=== PATIENT | female | born 1950 | race Caucasian/White ===

== ENCOUNTER 2017-12-27 06:20 | Inpatient (IN) | payer MEDICARE, BC ==
--- NOTE | 2017-12-27 07:04 | HP ---
HISTORY OF PRESENT ILLNESS: This is a 67-year-old patient on chronic hemodialysis, followed by Dr. Ryland joy. She is status post coronary bypass grafting x2 done in [place], [place] and underwent stenting of a diagonal branch last year by Dr. Jarrett. Subsequent to that, she was found to have a severe right in ternal carotid artery stenosis; however, due to dual antiplatelet therapy her carotid endarterectomy has been postponed until this time. She is known to have moderate aortic valve stenosis with a valve area of 1.24 by echo with normal left ventricular systolic function. Otherwise, she has type 2 diab etes mellitus managed by an insulin pump. She has end-stage renal disease. She has neuropathy and s lady stenosis, retinopathy. PAST SURGICAL HISTORY: Includes multiple laser treatments for her eyes, as well as multiple eye surg eries, bilateral cataract surgeries, cholecystectomy, prior cardiac stents in 2010, prior coronary by pass graft in 2011, diagonal stent in 12/2016. FAMILY HISTORY: Positive for hypertension and heart disease. SOCIAL HISTORY: She is a nonsmoker, nondrinker. 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 ALLERGIES: Include SCOPOLAMINE, MEPERIDINE, and DEMEROL, both of which the latter to cause nausea an d vomiting. MEDICATIONS: Gabapentin, Sensipar, losartan 100, aspirin 1 a day, Livalo 4 mg a day, metoprolol 100 b.i.d., NovoLog insulin. PHYSICAL EXAMINATION: VITAL SIGNS: Height 5 feet 4 inches, weight 215. NECK: Bilateral bruits. CARDIAC: Regular rate and rhythm with a systolic murmur. LUNGS: Clear to auscultation. ABDOMEN: Obese, nontender. EXTREMITIES: Fistula in the right upper arm and a palpable pedal pulse in each foot. NEUROLOGIC: Unremarkable. PLAN: Right carotid endarterectomy confirmed both on MR study and CT scan. Informed consent has bee n obtained.
[2017-12-27] MEDS ORDERED: CEFAZOLIN/Water 2 GM/20 ML SYRINGE ONE (08:14)
[2017-12-27 09:08] LABS: Hemoglobin 10.9 g/dL (12.0-16.0); Mean Corpuscular HGB CONC 31.4 g/dL (32.0-36.0); Mean Corpuscular Hemoglobin 33.2 pg (27.0-31.0); Platelet Count 277 thou/uL (130-400); RBC Distribution Width 15.2 % (11.5-14.5); Red Blood Cell (RBC) Count 3.28 mill/uL (4.20-5.40); White Blood Cell (WBC) Count 7.8 thou/uL (4.8-10.8)
[2017-12-27 09:33] LABS: Anion Gap 14 mmol/L (10-20); BUN (Urea Nitrogen) 40 mg/dL (9.8-20.1); Calc. Creatinine Clearance 14 mL/min (70-130); Calcium 9.5 mg/dL (7.8-10.44); Carbon Dioxide 35 mmol/L (23-31); Chloride 96 mmol/L (98-107); Estimated GFR-MDRD 7; Glucose 84 mg/dL (80-115); Potassium 5.3 mmol/L (3.5-5.1); Sodium 140 mmol/L (136-145)
[2017-12-27] MEDS ORDERED: Fentanyl 100 MCG/2 ML VIAL ONE ×2 (09:54→12:32)
[2017-12-27] MEDS ORDERED: Labetalol HCl 100 MG/20 ML VIAL ONE (09:54)
[2017-12-27] MEDS ORDERED: Phenylephrine HCL 10 MG/ML VIAL ONE (09:54)
[2017-12-27] MEDS ORDERED: SUGAMMADEX SODIUM 500 MG/5 ML VIAL ONE (11:54)
[2017-12-27] MEDS ORDERED: Naloxone HCl 0.4 mg/ml Vial ONE (11:57)
[2017-12-27] MEDS ORDERED: Promethazine HCl 25 MG/ML VIAL SLOW IVP PRN (12:06)
[2017-12-27] MEDS ORDERED: Ondansetron HCl/PF 4 MG/2 ML Vial IVP PRN ×2 (12:06→13:18)
[2017-12-27] MEDS ORDERED: Promethazine HCl 25 MG/ML VIAL IM PRN ×2 (12:06→13:18)
[2017-12-27] MEDS ORDERED: HYDROmorphone 2 MG/ML VIAL SLOW IVP PRN (12:06)
[2017-12-27] MEDS ORDERED: hydrALAZINE 20 MG/ML VIAL ONE (12:18)
--- NOTE | 2017-12-27 12:23 | EKG ---
Test Reason : PREOP Blood Pressure : / mmHG Vent. Rate : 057 BPM Atrial Rate : 057 BPM P-R Int : 168 ms QRS Dur : 094 ms QT Int : 450 ms P-R-T Axes : 063 015 039 degrees QTc Int : 438 ms Sinus bradycardia Otherwise normal ECG When compared with ECG of 23-DEC-2016 09:46, No significant change was found Confirmed by SYEDA ALANIZ ([id number]) on 12/27/2017 12:23:06 PM Referred By: CARA Confirmed By:SYEDA ALANIZ
[2017-12-27] MEDS ORDERED: Ondansetron HCl/PF 4 MG/2 ML Vial ONE ×2 (12:32→12:35)
[2017-12-27] MEDS ORDERED: Dexamethasone 20 MG/5 ML VIAL ONE (12:35)
[2017-12-27] MEDS ORDERED: PROPOFOL 200 MG/20 ML VIAL ONE (12:35)
[2017-12-27] MEDS ORDERED: PHENYLEPHRINE-NS 100 MCG/ML 10 ML SYRINGE ONE (12:35)
[2017-12-27] MEDS ORDERED: Glycopyrrolate 0.2 MG/ML 5 ML SYRINGE ONE (12:35)
[2017-12-27] MEDS ORDERED: Lidocaine 1% PF 5 ML VIAL ONE (12:35)
[2017-12-27] MEDS ORDERED: Heparin 10,000 UNITS/ 10 ML VIAL ONE (12:35)
[2017-12-27] MEDS ORDERED: Fentanyl 100 MCG/2 ML VIAL SLOW IVP PRN (13:18)
[2017-12-27] MEDS ORDERED: Sodium Chloride 0.9% 1,000 ML IV SCH (13:18)
[2017-12-27] MEDS ORDERED: Insulin Regular 300 UNITS/3 ML VIAL SC PRN (13:18)
[2017-12-27] MEDS ORDERED: HYDROcodone/Acetaminophen 5/325 mg Tablet PO PRN (13:18)
[2017-12-27] MEDS ORDERED: Ketorolac Tromethamine 30 MG/ML VIAL IVP PRN (13:18)
[2017-12-27] MEDS ORDERED: Acetaminophen 325 MG TAB PO PRN (13:18)
[2017-12-27] MEDS ORDERED: CEFAZOLIN/Water 2 GM/20 ML SYRINGE SLOW IVP SCH (13:18)
[2017-12-27] MEDS ORDERED: Phenylephrine 10 MG/NS 250 ML 250 ML IVPB PRN (13:18)
[2017-12-27] MEDS ORDERED: hydrALAZINE 20 MG/ML VIAL SLOW IVP PRN (13:18)
[2017-12-27 13:37] VITALS: BMI 38.7
[2017-12-27] MEDS ORDERED: Prevnar 13-Val Conj/PF 0.5 ML SYRINGE IM ONE (14:00)
[2017-12-27] MEDS: CEFAZOLIN/Water 2 GM/20 ML SYRINGE SLOW IVP SCH (17:43)
--- NOTE | 2017-12-27 18:01 | OP ---
PREOPERATIVE DIAGNOSIS: Right carotid stenosis. POSTOPERATIVE DIAGNOSIS: Right carotid stenosis. PROCEDURE: Right carotid endarterectomy with bovine patch angioplasty. SURGEON: Sanjeev Ortega M.D. ANESTHESIA: General. ESTIMATED BLOOD LOSS: 100 mL. DESCRIPTION OF PROCEDURE: After adequate anesthesia had been obtained, ultrasound was used to guide an incision. The incision was then made, platysma incised. Sternocleidomastoid muscle rotated laterally. Bifurcation was identified. Facial vein was ligated and divided. Common internal and external carotid arteries were identified and the patient was heparinized. Clamps were applied and arteriotomy performed, at which point there was brisk bleeding out the arteriotomy. The common carotid artery clamp was replaced. However, it continued to bleed briskly and at that time, it was felt there must be some calcification preventing occlusion and the clamp was slid inferiorly requiring incision being extended inferiorly. Following this, there was good control, arteriotomy completed and 12 [place]ian shunt placed. Endarterectomy was then performed following which the area was thoroughly irrigated. Bovine patch was secured to close the arteriotomy with a running 6-0 Prolene suture. Prior to completing the suture line, vessels were backflushed, forward flushed and then the area thoroughly irrigated with heparinized saline. the suture line was secured. Protamine given systemically. After obtaining good hemostasis, the wound was irrigated and closed in layers. The patient is to be taken to the ICU in guarded condition. [facility]
[2017-12-27] MEDS: Metoprolol Tartrate 100 MG TAB PO SCH (20:19)
[2017-12-27] MEDS ORDERED: Non-Formulary Item 1 EACH (Pitavastatin Calcium 2 MG) PO SCH (21:00)
[2017-12-27] MEDS ORDERED: Non-Formulary Item 1 EACH (Losartan Potassium [Cozaar] 100 MG) PO SCH (21:00)
[2017-12-27] MEDS ORDERED: Losartan 25 MG TAB PO SCH (21:00)
[2017-12-27] MEDS ORDERED: Atorvastatin Calcium 10 MG TAB PO SCH (21:00)
[2017-12-27] MEDS ORDERED: Gabapentin 300 MG CAP PO SCH (21:00)
[2017-12-28] MEDS: CEFAZOLIN/Water 2 GM/20 ML SYRINGE SLOW IVP SCH ×2 (03:35→12:15)
--- NOTE | 2017-12-28 06:10 | DIS ---
HOSPITAL COURSE: The patient was brought in on 12/27/2017 where she underwent an elective right pacheco tid endarterectomy for severe stenosis. Her postoperative course was uneventful. The morning follow ing surgery she denied any discomfort and had minimal swelling and neurologic exam was intact. She w ill be discharged today post-dialysis and will resume her home medications. She will follow up with me in 2-3 weeks and discharge instructions have been given.
[2017-12-28 08:00] VITALS: TEMP 97.8
--- NOTE | 2017-12-28 10:47 | CON ---
DATE OF CONSULTATION: 12/28/2017 HISTORY OF PRESENT ILLNESS: Ms. Floyd is a 67-year-old white female with ESRD, on maintenance hemod ialysis and admitted for peripheral vascular disease. She underwent a right carotid endarterectomy w ith bovine patch angioplasty. She is doing well since surgery. We are consulted for her maintenance hemodialysis. I am at the bedside supervising her dialysis. She is tolerating said treatment. REVIEW OF SYSTEMS: No chest pain. Positive for postop pain. No nausea, no vomiting, no diarrhea, n o shortness of breath, no fever or chills, no abdominal pain. Appetite fair. Energy level is fair. No gross hematuria, no dysuria, no urine frequency, no syncopal episode, no sore throat. MEDICATIONS: [place] 5/325 q.4 hours p.r.n., DuoNeb q.6 hourly p.r.n., Lipitor 10 mg tab at bedtime, A ncef 2 grams IV q.8, gabapentin 300 mg at bedtime, hydralazine 10 mg IV q.6 hours p.r.n., Humulin R sliding scale, Toradol 15 mg q.6 hours p.r.n., losartan 100 mg p.o. at bedtime, Lopressor 100 mg p.o. b.i.d., nicardipine drip - consumes Zofran p.r.n. PAST MEDICAL HISTORY: 1. Coronary artery disease. 2. End-stage renal disease, currently on maintenance hemodialysis. 3. Hyperlipidemia. 4. End-stage renal disease from diabetic nephropathy, diabetic neuropathy, diabetic retinopathy. 5. Type 2 diabetes mellitus. 6. Carpal tunnel syndrome. 7. Status post nephrolithiasis. 8. Hypertension. 9. Osteopenia. 10. Obstructive sleep apnea. 11. Asthma. 12. Peripheral vascular disease. PAST SURGICAL HISTORY: 1. Recently status post right carotid endarterectomy. 2. Status post vitrectomy bilateral eyes. 3. Status post laser therapy of the eyes. 4. Status post cystoscopy with lithotripsy. 5. Status post laparoscopic cholecystectomy. 6. Status post cardiac catheterization. 7. Status post CABG. 8. Status post right carpal tunnel surgery. 9. Status post bilateral tubal ligation. 10. Status post AV fistula placement. 11. Status post cuffed hemodialysis catheter placement. ALLERGIES: None. TRAUMA: Status post left foot contusion secondary to a horse injury. IMMUNIZATIONS: Up to date. HOSPITALIZATIONS: Please see past medical history. SOCIAL HISTORY: The patient is , 3 children. 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 No history of smoking. Alcohol none. Education: College degree. Sh ari is status post blood transfusion. No IV drug abuse. FAMILY HISTORY: No family history of any of ESRD. PHYSICAL EXAMINATION: VITAL SIGNS: Blood pressure is 141/54, heart rate 55, respiratory rate 22, temperature 97.8, pulse o x 92%. GENERAL: Awake, alert, comfortable, not in distress. SKIN: Adequate turgor. NECK: No neck mass, no carotid bruit, no JVD. She has a right surgical scar on her neck, obese. HEENT: She has slightly pale conjunctivae, anicteric sclerae. CHEST: No deformities. LUNGS: Clear breath sounds, no wheezing, no crackles. HEART: Normal sinus rhythm. No murmur, no gallops or rubs. ABDOMEN: Globular, soft, nontender. No masses. EXTREMITIES: No edema, no deformities. LABORATORY: 12/27/2017 - White count 7.8, hemoglobin 10.9. Sodium 140, potassium 5.3, chloride 96, carbon dioxide 35, BUN 40, creatinine 6.19, glucose 84, calcium 9.5. 12/28/2017 - Glucose 196. ASSESSMENT AND PLAN: 1. End-stage renal disease, stable. Tolerating current hemodialysis regimen. Review of the last Kt /V suggests she is adequately dialyzed with the current dialysis regimen. My plan is to continue cur rent dialysis regimen without any changes at the present time. 2. Peripheral vascular disease, status post right carotid endarterectomy, doing well. Surgery is fo llowing. I agree with planned discharge after dialysis.
[2017-12-28 12:17] VITALS: BP 121/45
[2017-12-28] MEDS: Metoprolol Tartrate 100 MG TAB PO SCH (12:22)
== END 2017-12-28 12:33 | disposition home or self-care (01) | DRG 37 ==
LOC: SURG A 06:51 → CCU 13:03
PROVIDERS: ADMIT Thoracic Surgery (Cardiothoracic Vascular Surgery); ATTEND Thoracic Surgery (Cardiothoracic Vascular Surgery)
PROC: 03CK0Z6 (ICD-10-PCS; principal; 2017-12-27)
PROC: 03UK0KZ Supplement Right Internal Carotid Artery with Nonautologous Tissue Substitute, Open Approach (ICD-10-PCS; 2017-12-27)
PROC: 5A1D70Z Performance of Urinary Filtration, Intermittent, Less than 6 Hours Per Day (ICD-10-PCS; 2017-12-28)
DX: I65.21 Occlusion and stenosis of right carotid artery (principal); N18.6 End stage renal disease; I12.0 Hypertensive chronic kidney disease with stage 5 chronic kidney disease or end stage renal disease; E11.22 Type 2 diabetes mellitus with diabetic chronic kidney disease; I25.10 Atherosclerotic heart disease of native coronary artery without angina pectoris; I25.83 Coronary atherosclerosis due to lipid rich plaque; E78.5 Hyperlipidemia, unspecified; E11.21 Type 2 diabetes mellitus with diabetic nephropathy; E11.40 Type 2 diabetes mellitus with diabetic neuropathy, unspecified; E11.319 Type 2 diabetes mellitus with unspecified diabetic retinopathy without macular edema; M85.80 Other specified disorders of bone density and structure, unspecified site; G47.33 Obstructive sleep apnea (adult) (pediatric); J45.909 Unspecified asthma, uncomplicated; I73.9 Peripheral vascular disease, unspecified; Z99.2 Dependence on renal dialysis; Z79.4 Long term (current) use of insulin; Z95.1 Presence of aortocoronary bypass graft; Z98.890 Other specified postprocedural states; Z96.41 Presence of insulin pump (external) (internal); M48.00 Spinal stenosis, site unspecified; Z95.5 Presence of coronary angioplasty implant and graft
CPT/HCPCS: 36416; 80048; 85027; 93005; 93010; A4216; J0360; J1100; J1642; J1644; J1885; J2001; J2310; J2370; J2405; J2704; J3010; J7050

== ENCOUNTER 2018-02-08 16:54 | Observation (INO) | payer MEDICARE, BC ==
[2018-02-08 17:42] VITALS: BMI 34.5
[2018-02-08] MEDS ORDERED: Dextrose 50% Abboject 50 ML SYRINGE IVP PRN (18:35)
[2018-02-08] MEDS ORDERED: Dextrose 5% in Water 1,000 ML IV PRN (18:35)
[2018-02-08] MEDS ORDERED: HumaLOG 300 UNITS/3 ML VIAL SC PRN (18:35)
[2018-02-08] MEDS ORDERED: cloNIDine 0.1 MG TAB PO PRN (18:36)
[2018-02-08 19:25] LABS: #Eosinphils 0.1 thou/uL (0.0-0.7); #Lymphocytes 1.1 thou/uL (1.20-3.40); #Monocytes 0.7 thou/uL (0.11-0.59); #Neutrophils 4.5 thou/uL (1.40-6.50); %Basophils 0.3 % (0.0-1.0); %Eosinophils 1.4 % (0.0-10.0); %Lymphocytes 17.2 % (21.0-51.0); %Monocytes 10.2 % (0.0-10.0); Hemoglobin 13.6 g/dL (12.0-16.0); Mean Corpuscular HGB CONC 33.4 g/dL (32.0-36.0); Mean Corpuscular Hemoglobin 34.2 pg (27.0-31.0); Platelet Count 224 thou/uL (130-400); RBC Distribution Width 15.3 % (11.5-14.5); Red Blood Cell (RBC) Count 3.99 mill/uL (4.20-5.40); White Blood Cell (WBC) Count 6.4 thou/uL (4.8-10.8)
[2018-02-08] MEDS: Dextrose 5% in Water 1,000 ML IV SCH (19:38)
[2018-02-08 19:45] LABS: ALT (SGPT) 9 U/L (8-55); AST (SGOT) 18 U/L (5-34); Albumin 3.9 g/dL (3.4-4.8); Alkaline Phosphatase 60 U/L (40-150); Anion Gap 18 mmol/L (10-20); BUN (Urea Nitrogen) 17 mg/dL (9.8-20.1); Bilirubin, Total 0.5 mg/dL (0.2-1.2); Calc. Creatinine Clearance 18 mL/min (70-130); Calcium 9.2 mg/dL (7.8-10.44); Carbon Dioxide 26 mmol/L (23-31); Chloride 96 mmol/L (98-107); Estimated GFR-MDRD 10; Globulin 3.3 g/dL (2.4-3.5); Glucose 130 mg/dL (80-115); Potassium 3.9 mmol/L (3.5-5.1); Protein, Total 7.2 g/dL (6.0-8.3); Sodium 136 mmol/L (136-145)
--- NOTE | 2018-02-08 20:43 | RAD ---
CHEST ONE VIEW: 02/08/18 HISTORY: Heart problems, shortness of breath. COMPARISON: Radiograph 2012. FINDINGS: There are multiple midline sternotomy wires. Evidence of old left and right sided rib fractures. Ther e is pulmonary venous congestion and early edema. Heart size is mildly enlarged. IMPRESSION: 1. Mild cardiomegaly and pulmonary venous congestion. 2. Pulmonary arterial hypertension. POS: HOME
[2018-02-08] MEDS: Meclizine HCl 25 MG TAB PO SCH (22:13)
[2018-02-08] MEDS: Gabapentin 100 MG CAP PO SCH (22:14)
[2018-02-08] MEDS: Metoprolol Tartrate 50 MG TAB PO SCH (22:14)
[2018-02-08] MEDS: Pantoprazole 40 MG VIAL IVP SCH (22:15)
[2018-02-08 23:59] LABS: Bilirubin Negative (Negative); Blood, Urine Small (Negative); Clarity CLOUDY (Clear); Glucose, Urine (Dipstick) 100 mg/dL (Negative); Leukocyte Large (Negative); Nitrite Negative (Negative); Protein, Urine (Dipstick) 300 mg/dL (Neg-Trace); Specific Gravity, Urine 1.012 (1.002-1.036); Urobilinogen 0.2 mg/dL (0.2-1.0); pH, Urine 7.5 (5.0-9.0)
[2018-02-09 00:02] LABS: Bacteria/HPF None Seen HPF (None Seen); Pathc Cast-AUWi Flag 2.32 (0-2.49); Squamous Epithelial 0-3 HPF (0-3)
[2018-02-09 00:03] LABS: Yeast-AUWi Flag 122.9 (0-25.0)
[2018-02-09 00:11] LABS: Hyaline Casts/LPF 0-3 HYALINE CAST LPF (0-3 Hyaline); Yeast-All Forms 1+ HPF (None Seen)
[2018-02-09 04:55] LABS: Hemoglobin A1c 6.3 % (4.0-6.0)
[2018-02-09] MEDS: Meclizine HCl 25 MG TAB PO SCH ×3 (05:39→21:39)
[2018-02-09] MEDS ORDERED: cefTRIAXone Sodium 1,000 MG in Syringe 0 ML IVPB SCH (07:45)
[2018-02-09] MEDS: Dextrose 5% in Water 1,000 ML IV SCH (09:00)
--- NOTE | 2018-02-09 09:00 | HP ---
DATE OF INITIAL OBSERVATION: 02/08/2018 CHIEF COMPLAINT: Extreme vertigo with dehydration. HISTORY OF PRESENT ILLNESS: The patient is a 67-year-old female who initially came to Dr. Guerrero on 02/05/2018, complaining of facial pressure, drainage, weight loss of about 10 pounds. Her glucose was running just over 200. She had severe migraine headache at that time and her blood pressure was slightly elevated. She began her on Imitrex for the migraines and started Levaquin 500 daily once a day. Over the next several days, she has failed to improve with consistent nausea, no vomiting, but the anorexia has been so bad. She has not been able to consume very much food, the food taste bad. She has had low grade fever. She gets dizzy and her legs nearly give away when she stands up and she has severe vertigo as mentioned previously, she has also noticed congestion with blood in the phlegm and occasional fever. She states she has been taking the Levaquin. Her blood sugars have been running in the 140s to the 240s. She did undergo her dialysis this morning and has not felt any better. When she stood on the day of admission, she almost fell due to her weak legs. She also has some mid-epigastric stomach pain as well. In the office under evaluation, she was pale, too weak to stand, and too ill to go home. She has failed outpatient treatment. Her pharynx is dry and she was symptomatically miserable. PAST MEDICAL HISTORY: Significant for insulin-dependent diabetes that is treated with an insulin pump, hypertension, spinal stenosis, diabetic retinopathy, peripheral neuropathy, coronary artery disease, hyperlipidemia, end -stage renal disease. She also has moderate aortic valve stenosis. PAST SURGICAL HISTORY: Her surgeries most recently include right internal carotid endarterectomy per Dr. Ortega, 12/2017. She has also had multiple laser treatments to her eyes, bilateral cataract surgeries, cholecystectomy, cardiac stents in 2010, prior cardiac bypass graft in 2011, diagonal stent in 12/2016. FAMILY HISTORY: Positive for hypertension and heart disease. SOCIAL HISTORY: She is nonsmoker, nondrinker, . 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 ALLERGIES: Include SCOPOLAMINE, DEMEROL. MEDICATIONS AT TIME OF ADMISSION: Include aspirin 81 mg daily, Livalo 4 mg daily, metoprolol 100 mg b.i.d. She takes NovoLog insulin in her pump. She is currently using gabapentin 300 mg at bedtime, losartan 100 mg at bedtime, and sliding scale insulin as needed. She is taking Mircera 75 mg IV push every 4 weeks and Venofer 50 mg IV every week, Topamax 25 mg once a day, and Tylenol No. 3 p.r.n. for pain. REVIEW OF SYSTEMS: General: She is a weak, lethargic, states she has been having fever. HEENT: Ears: Denies pain or trouble hearing. Eyes: Denies discharge. Nares and pharynx: Admits to congestion, postnasal drip, phlegm with blood in it and unable to taste. Neck: No trouble with range of motion or masses. Chest: Denies any trouble coughing or breathing. Heart: Denies chest pain or palpitations. Abdomen: Admits to mid epigastric tenderness and pain, nausea that is constant, and anorexia. Genitourinary: Denies any painful urination or frequency. Denies blood in urine or stool. Musculoskeletal: No specific pain in joints or muscles. Lymph: Denies any edema, rashes, or lesions. PHYSICAL EXAMINATION: At the time of admission: VITAL SIGNS: Blood pressure 147/71, temperature 98.8, pulse 87. She is 5 feet and 2 inches tall, last weight was 208 pounds. GENERAL: This is an obese female, pale, lethargic, weak. HEENT: Normocephalic and atraumatic. Pupils are equal, round, and reactive to light with arcus senilis bilaterally. TMs, nares, pharynx are clear except pharynx is extremely dry. Unable to appreciate postnasal drip at this time. There is facial tenderness and pain over the maxillary sinuses. NECK: Supple, no masses. CHEST: Clear to auscultation. BREAST: Deferred. HEART: Regular rate and rhythm without murmur. ABDOMEN: Tender midepigastrically. No guarding or rebound. Unable to appreciate organomegaly. GENITOURINARY: Deferred. EXTREMITIES: Without clubbing, cyanosis, or edema. SKIN: Poor turgor, pale. NEUROLOGIC: Cranial nerves are intact. Mental status is at baseline, clear. Gait is very weak and unsteady. Sensory exam is grossly intact. LABORATORY FINDINGS: Pending at the time of admission. ASSESSMENT: 1. Dehydration. 2. Vertigo. 3. Sinusitis resistant to outpatient treatment. 4. End-stage renal disease, on dialysis. 5. Insulin-dependent diabetic. PLAN: To gradually rehydrate the patient keeping her fluid status in mind since she is on dialysis, provide antiemetics, serially reevaluate CT of sinuses. Check for H. pylori. Use antibiotics were needed and like I mentioned serially reevaluate her. MTDD
[2018-02-09] MEDS: Losartan 25 MG TAB PO SCH (09:01)
[2018-02-09] MEDS: Metoprolol Tartrate 50 MG TAB PO SCH ×2 (09:02→20:06)
[2018-02-09] MEDS ORDERED: Dextrose 5% in Water 1,000 ML IV SCH (09:15)
[2018-02-09] MEDS: cefTRIAXone\\ROCEPHIN 1 GM in Sodium Chloride 0.9% 100 ML IVPB SCH (11:01)
[2018-02-09] MEDS: Gabapentin 100 MG CAP PO SCH (20:06)
[2018-02-09] MEDS: Pantoprazole 40 MG VIAL IVP SCH (20:08)
[2018-02-09] MEDS: Ondansetron HCl/PF 4 MG/2 ML Vial IVP PRN (23:10)
[2018-02-10 05:13] LABS: Anion Gap 15 mmol/L (10-20); BUN (Urea Nitrogen) 29 mg/dL (9.8-20.1); Calc. Creatinine Clearance 12 mL/min (70-130); Calcium 8.8 mg/dL (7.8-10.44); Carbon Dioxide 26 mmol/L (23-31); Chloride 88 mmol/L (98-107); Estimated GFR-MDRD 6; Glucose 179 mg/dL (80-115); Sodium 125 mmol/L (136-145)
[2018-02-10 05:52] LABS: Band 1 % (5-11); Hemoglobin 12.1 g/dL (12.0-16.0); Lymphocytes 20 % (21-51); MDiff Complete? YES; Mean Corpuscular HGB CONC 33.4 g/dL (32.0-36.0); Mean Corpuscular Hemoglobin 34.4 pg (27.0-31.0); Mean Platelet Volume 6.7 fL (7.4-10.4); Monocytes 9 % (0-10); Neutrophil 70 % (42-75); PLT Morphology Comment Appears Adequate; Platelet Count 190 thou/uL (130-400); RBC Distribution Width 15.8 % (11.5-14.5); Red Blood Cell (RBC) Count 3.51 mill/uL (4.20-5.40); White Blood Cell (WBC) Count 7.6 thou/uL (4.8-10.8)
[2018-02-10] MEDS: Meclizine HCl 25 MG TAB PO SCH ×3 (06:01→21:35)
[2018-02-10] MEDS: Ondansetron HCl/PF 4 MG/2 ML Vial IVP PRN (06:03)
[2018-02-10] MEDS ORDERED: Fluconazole 100 MG TAB PO SCH (11:00)
[2018-02-10] MEDS: cefTRIAXone\\ROCEPHIN 1 GM in Sodium Chloride 0.9% 100 ML IVPB SCH (11:28)
[2018-02-10] MEDS: Losartan 25 MG TAB PO SCH ×2 (11:46→16:47)
[2018-02-10] MEDS: Metoprolol Tartrate 50 MG TAB PO SCH ×2 (11:46→20:27)
--- NOTE | 2018-02-10 13:44 | CON ---
DATE OF CONSULTATION: 02/10/2018 SERVICE: Renal Medicine. HISTORY OF PRESENT ILLNESS: Ms. Floyd is a 67-year-old white female with ESRD and admitted for edward re dizziness with nausea. She was felt to be dehydrated. We are being consulted for her maintenance hemodialysis. She is currently undergoing dialysis. I am at the bedside supervising her dialysis. She still feels tired and lethargic. REVIEW OF SYSTEMS: Positive for dizziness. Positive for lethargy. Positive for nausea. No diarrhe a, no constipation, no syncopal episode, no productive cough, no fever or chills, no headache, no abd ominal pain, no gross hematuria, no dysuria, no urinary frequency. PAST MEDICAL HISTORY: Includes the following; 1. ESRD from diabetic nephropathy. 2. Type 2 diabetes mellitus. 3. Coronary artery disease. 4. Carpal tunnel syndrome. 5. Status post nephrolithiasis. 6. Hyperlipidemia. 7. Obstructive sleep apnea. 8. Asthma. 9. Peripheral vascular disease. 10. Osteopenia. 11. Hypertension. 12. Peripheral vascular disease. PAST SURGICAL HISTORY: Status post cardiac catheterization, status post CABG, status post right pacheco tid endarterectomy, status post vitrectomy bilateral, status post laser therapy of the eyes, status p ost lithotripsy, status post laparoscopic cholecystectomy, status post AV fistula placement, status p ost cuffed dialysis catheter placement, status post bilateral tubal ligation. SOCIAL HISTORY: The patient is . Lives in [facility]. Three children. 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 No history of smoking, no alcohol intake. Education: College degree. Status post multiple blood transfusions. No IV drug abuse. ALLERGIES: None. TRAUMA: Status post left foot contusion secondary to horse injury. IMMUNIZATIONS: Up to date. HOSPITALIZATIONS: Please see past medical history. FAMILY HISTORY: No family history of ESRD. PHYSICAL EXAMINATION: VITAL SIGNS: Blood pressure 155/72, heart rate 64, respiratory rate 18, temperature 98.3, and pulse ox 92%. GENERAL: Noted to be awake, supine, comfortable, lethargic, not in overt distress. SKIN: Adequate turgor. HEENT: Pinkish conjunctivae, anicteric sclerae. NECK: No neck mass, no carotid bruits, no JVD. CHEST: No deformities. LUNGS: Clear breath sounds, no wheezing, no crackles. HEART: Normal sinus rhythm. No murmur, no gallops, no rubs. ABDOMEN: Globular, soft, nontender, no masses. EXTREMITIES: Trace edema. MEDICATIONS: 02/10/2018. Ceftriaxone 1 gram IV q.24 hours, Neurontin 300 mg p.o. at bedtime, Levaqu in 500 mg q.24 hours, Cozaar 100 mg daily, Antivert 25 mg q.8 h., Lopressor 100 mg p.o. b.i.d., Zofra n 8 mg IV q.6 hours p.r.n., and Protonix 40 mg tab once a day. LABORATORY: 02/08/2018: Chest x-ray shows CHF. Urinalysis showed WBC of greater than 50, 1+ yeast, bacteria none seen. Chemistries: Sodium 125, potassium 4.0, chloride 88, carbon dioxide 26, BUN 29, creatinine 6.58, glu cose 179, calcium 8.8. White count 7.6, hemoglobin 12.1. ASSESSMENT AND PLAN: 1. Urinary tract infection -- empirically on IV antibiotics. I would suggest we adjust Levaquin dos e. Please note, urine C and S shows no growth to date. Blood culture also shows no growth to date. 2. End-stage renal disease, stable. Continuing current hemodialysis regimen. Fluid removal as tole rated. We will try to max out fluid removal due to chest x-ray findings of congestive heart failure. 3. Anemia -- no indication for any Epogen with this patient. Due to the renal dysfunction, we will adjust Levaquin to 250 mg to 250 mg every other day dosing.
[2018-02-10] MEDS: Gabapentin 100 MG CAP PO SCH (20:27)
[2018-02-10] MEDS: Pantoprazole 40 MG VIAL IVP SCH (20:27)
[2018-02-11] MEDS: Meclizine HCl 25 MG TAB PO SCH ×3 (06:00→21:42)
[2018-02-11] MEDS: cefTRIAXone\\ROCEPHIN 1 GM in Sodium Chloride 0.9% 100 ML IVPB SCH (08:18)
[2018-02-11] MEDS: Losartan 25 MG TAB PO SCH (08:28)
[2018-02-11] MEDS: Metoprolol Tartrate 50 MG TAB PO SCH ×2 (08:28→20:48)
[2018-02-11] MEDS: Fluconazole 100 MG TAB PO SCH (08:28)
[2018-02-11] MEDS: Gabapentin 100 MG CAP PO SCH (20:48)
[2018-02-11] MEDS: Pantoprazole 40 MG VIAL IVP SCH (20:49)
[2018-02-12] MEDS: Meclizine HCl 25 MG TAB PO SCH (06:06)
[2018-02-12 06:10] LABS: #Basophils 0.1 thou/uL (0.0-0.2); #Eosinphils 0.4 thou/uL (0.0-0.7); #Lymphocytes 1.7 thou/uL (1.20-3.40); #Monocytes 0.8 thou/uL (0.11-0.59); #Neutrophils 4.2 thou/uL (1.40-6.50); %Basophils 0.7 % (0.0-1.0); %Lymphocytes 23.6 % (21.0-51.0); %Monocytes 10.9 % (0.0-10.0); %Neutrophils 58.8 % (42.0-75.0); Mean Corpuscular HGB CONC 33.5 g/dL (32.0-36.0); Mean Corpuscular Hemoglobin 34.5 pg (27.0-31.0); Mean Platelet Volume 6.9 fL (7.4-10.4); Platelet Count 194 thou/uL (130-400); RBC Distribution Width 15.7 % (11.5-14.5); Red Blood Cell (RBC) Count 4.06 mill/uL (4.20-5.40); White Blood Cell (WBC) Count 7.1 thou/uL (4.8-10.8)
[2018-02-12 06:17] LABS: Anion Gap 17 mmol/L (10-20); BUN (Urea Nitrogen) 20 mg/dL (9.8-20.1); Calc. Creatinine Clearance 12 mL/min (70-130); Carbon Dioxide 24 mmol/L (23-31); Chloride 93 mmol/L (98-107); Estimated GFR-MDRD 6; Potassium 4.7 mmol/L (3.5-5.1); Sodium 129 mmol/L (136-145)
[2018-02-12 06:19] LABS: Glucose 47 mg/dL (80-115)
[2018-02-12] MEDS: cefTRIAXone\\ROCEPHIN 1 GM in Sodium Chloride 0.9% 100 ML IVPB SCH (08:10)
[2018-02-12] MEDS: Metoprolol Tartrate 50 MG TAB PO SCH (08:11)
[2018-02-12] MEDS: Fluconazole 100 MG TAB PO SCH (08:11)
[2018-02-12] MEDS: Losartan 25 MG TAB PO SCH (08:11)
[2018-02-12 11:20] VITALS: BP 133/74; TEMP 98.3
== END 2018-02-12 11:15 | disposition home or self-care (01) ==
LOC: T4-B 16:54
PROVIDERS: ADMIT Specialist; ATTEND Specialist
DX: E86.0 Dehydration (principal); J32.9 Chronic sinusitis, unspecified; E11.22 Type 2 diabetes mellitus with diabetic chronic kidney disease; I12.0 Hypertensive chronic kidney disease with stage 5 chronic kidney disease or end stage renal disease; N18.6 End stage renal disease; E11.42 Type 2 diabetes mellitus with diabetic polyneuropathy; E11.319 Type 2 diabetes mellitus with unspecified diabetic retinopathy without macular edema; I25.10 Atherosclerotic heart disease of native coronary artery without angina pectoris; E78.5 Hyperlipidemia, unspecified; I35.0 Nonrheumatic aortic (valve) stenosis; G47.33 Obstructive sleep apnea (adult) (pediatric); J45.909 Unspecified asthma, uncomplicated; M85.80 Other specified disorders of bone density and structure, unspecified site; I73.9 Peripheral vascular disease, unspecified; N39.0 Urinary tract infection, site not specified; D64.9 Anemia, unspecified; Z88.5 Allergy status to narcotic agent; Z88.8 Allergy status to other drugs, medicaments and biological substances; Z99.2 Dependence on renal dialysis; Z79.82 Long term (current) use of aspirin; Z79.899 Other long term (current) drug therapy
CPT/HCPCS: 71045; 80048 ×2; 80053; 81001; 82962 ×5; 83036; 85025 ×3; 87040; 87086; 96361 ×2; 96365; 96366 ×3; 96367; 96375 ×2; 96376 ×3; 97139; G0378 ×2; G0379; G8978; G8979; 36415; 36416; 90935; A4216; C9113; G0257; J0696; J1956; J2405; J7050

== ENCOUNTER 2018-02-20 11:49 | Outpatient (CLI) | payer MEDICARE, BC | END 2018-02-20 11:50 | disposition home or self-care (01) | LOC: BICRAD 11:49 | PROVIDERS: ATTEND Specialist | DX: M25.561 Pain in right knee (principal); M25.562 Pain in left knee; M17.12 Unilateral primary osteoarthritis, left knee ==

== ENCOUNTER 2018-02-21 07:59 | Emergency (ER) | payer MEDICARE, BC ==
[2018-02-21] MEDS ORDERED: Metoprolol Tartrate 50 MG TAB ONE (09:27)
--- NOTE | 2018-02-21 09:37 | CT ---
CT BRAIN NONCONTRAST: DATE: 02-21-18 TIME: 9:23 A.M. HISTORY: 67-year-old female status post head trauma due to fall. FINDINGS: There is no midline shift or any other mass effect. There is no evidence of acute intracranial hemor rhage, large cortical infarct, obstructive hydrocephalus, or extraaxial fluid collection. The calvar ium is intact. There is diffuse parenchymal volume loss. There are low attenuation areas in the whi te matter. These are nonspecific, but in a patient of this age, they are probably chronic ischemic w angela matter changes due to microvascular atherosclerosis. There is a small old lacunar infarction in the right basal ganglia also involving the anterior limb of right internal capsule. There is another one in the left basal ganglia. There is a third one in the right thalamus. There is no interval rowe e overall since 05-10-14. IMPRESSION: 1) No acute intracranial findings. 2) Involutional changes and chronic ischemic white matter changes. 3) Three very small old lacunar infarctions: one in each basal ganglia and one in the right thalamus. gilda POS: [facility]
--- NOTE | 2018-02-21 10:15 | CT ---
CT CERVICAL SPINE NONCONTRAST: HISTORY: 67-year-old female status post acute cervical trauma from fall. FINDINGS: There are no jumped or perched facets. There is no evidence of acute fracture. The vertebral body h eights are maintained. There is no prevertebral soft tissue swelling. IMPRESSION: No evidence of acute fracture or acute traumatic subluxation. gilda [] POS: [facility]
--- NOTE | 2018-02-21 10:17 | CT ---
MAXILLOFACIAL CT: TECHNIQUE: Axial images were obtained with coronal reconstructions. FINDINGS: The maxillofacial CT demonstrates some moderate left sphenoid sinus mucosal thickening, which appears to be chronic. The frontal, ethmoid, and right sphenoid, as well as the maxillary sinuses, are well aerated. No evidence of mandibular or maxillary fractures seen. Some bilateral carotid bulb vascular calcification is seen. IMPRESSION: No evidence of acute facial fractures. POS: [facility]
[2018-02-21] MEDS ORDERED: Adacel (T-DAP) 0.5 ML VIAL ONE (10:45)
[2018-02-21] MEDS ORDERED: Bacitracin Zinc 1 Packet ONE (10:45)
== END 2018-02-21 11:14 | disposition home or self-care (01) ==
LOC: ERS 07:59
DX: S00.12XA Contusion of left eyelid and periocular area, initial encounter (principal); S00.11XA Contusion of right eyelid and periocular area, initial encounter; S00.31XA Abrasion of nose, initial encounter; R04.0 Epistaxis; E11.40 Type 2 diabetes mellitus with diabetic neuropathy, unspecified; I10 Essential (primary) hypertension; Z79.899 Other long term (current) drug therapy; W19.XXXA Unspecified fall, initial encounter
CPT/HCPCS: 70450; 70486; 72125; 90471; 90715

== ENCOUNTER 2019-02-27 11:36 | Emergency (ER) | payer MEDICARE, BC ==
[2019-02-27 12:35] LABS: #Eosinphils 0.3 thou/uL (0.0-0.7); #Lymphocytes 1.3 thou/uL (1.20-3.40); #Monocytes 0.9 thou/uL (0.11-0.59); #Neutrophils 5.4 thou/uL (1.40-6.50); %Basophils 0.5 % (0.0-1.0); %Eosinophils 3.7 % (0.0-10.0); %Lymphocytes 16.6 % (21.0-51.0); %Monocytes 11.1 % (0.0-10.0); %Neutrophils 68.2 % (42.0-75.0); Hemoglobin 11.7 g/dL (12.0-16.0); Mean Corpuscular HGB CONC 32.6 g/dL (32.0-36.0); Mean Corpuscular Hemoglobin 34.7 pg (27.0-31.0); Mean Platelet Volume 6.9 fL (7.4-10.4); Platelet Count 302 thou/uL (130-400); RBC Distribution Width 15.1 % (11.5-14.5); Red Blood Cell (RBC) Count 3.38 mill/uL (4.20-5.40)
[2019-02-27 12:48] LABS: MDiff Complete? YES; Macrocytosis SLIGHT = 6-15 cells (100X) (0-5/hpf); Platelet Morphology Comment Appears Adequate
[2019-02-27 12:55] LABS: ALT (SGPT) Less than 7 U/L (8-55); AST (SGOT) 12 U/L (5-34); Albumin 3.8 g/dL (3.4-4.8); Alkaline Phosphatase 81 U/L (40-150); Anion Gap 16 mmol/L (10-20); BUN (Urea Nitrogen) 52 mg/dL (9.8-20.1); Bilirubin, Total 0.5 mg/dL (0.2-1.2); Calc. Creatinine Clearance 0 mL/min (70-130); Calcium 8.9 mg/dL (7.8-10.44); Carbon Dioxide 27 mmol/L (23-31); Chloride 99 mmol/L (98-107); Estimated GFR-MDRD 6; Globulin 3.4 g/dL (2.4-3.5); Glucose 69 mg/dL (80-115); Potassium 4.4 mmol/L (3.5-5.1); Protein, Total 7.2 g/dL (6.0-8.3); Sodium 138 mmol/L (136-145)
--- NOTE | 2019-02-27 13:33 | RAD ---
PORTABLE CHEST: 02/27/19 PROVIDED CLINICAL HISTORY: Dyspnea. FINDINGS: Comparison 02/08/18. Cardiac silhouette appears enlarged. Median sternotomy changes are seen. Prominence of the pulmonary vasculature and pulmonary interstitium are noted. No definite focal consolidation, pleural fluid, or pneumothorax apparent. Remote bilateral rib fractures. IMPRESSION: Cardiomegaly and findings suggesting congestive failure. Follow-up is recommended. POS: [facility]
== END 2019-02-27 14:30 | disposition home or self-care (01) ==
LOC: ERS 11:36
DX: I12.0 Hypertensive chronic kidney disease with stage 5 chronic kidney disease or end stage renal disease (principal); E11.22 Type 2 diabetes mellitus with diabetic chronic kidney disease; N18.6 End stage renal disease; E11.319 Type 2 diabetes mellitus with unspecified diabetic retinopathy without macular edema
CPT/HCPCS: 36415; 71045; 80053; 83880; 85025

== ENCOUNTER 2019-09-26 15:20 | Outpatient (CLI) | payer MEDICARE, BC ==
--- NOTE | 2019-09-26 16:12 | RAD ---
XR Chest Pa Lat STANDARD HISTORY: Pneumonia, cough COMPARISON: 02/27/2019 FINDINGS: Changes of median sternotomy are again seen. The heart is enlarged. No lobar consolidation, pneumothoraces or pleural effusions are seen. There are old rib fractures. IMPRESSION: No radiographic evidence of acute cardiopulmonary process.
== END 2019-09-26 15:21 | disposition home or self-care (01) ==
LOC: BICRAD 15:20
PROVIDERS: ATTEND Specialist
DX: J18.9 Pneumonia, unspecified organism (principal)
CPT/HCPCS: 71046

== ENCOUNTER 2019-10-18 08:31 | Outpatient (CLI) | payer MEDICARE, BC ==
[2019-10-18] MEDS ORDERED: Iopamidol 370 76% 100 ML VIAL ONE (09:14)
--- NOTE | 2019-10-18 10:39 | CT ---
EXAM: CT angiogram neck with IV contrast and three-dimensional reconstructions PROVIDED CLINICAL HISTORY: Carotid stenosis COMPARISON: None FINDINGS: There is a normal, three-vessel configuration of the great vessels at the arch. There is conspicuous calcified atherosclerotic plaque involving the left carotid bulb, extending into the left internal carotid artery origin. Minimal luminal diameter in this region is approximately 3.5 mm. This compares to the normal diameter of the more distal left internal carotid artery of 5.5 m m. There is focal atherosclerotic plaque involving the origin of the left vertebral artery, producing po tentially high-grade stenosis. The right vertebral, innominate, subclavian, common carotid and extracranial right internal carotid a rteries demonstrate no significant stenosis. There is atherosclerotic calcium seen involving the cavernous segments of both internal carotid arter ies. There is partial opacification of the sphenoid sinus. No regional lymph node enlargement is evident. The visualized lung apices appear clear. The visualized portions of the aerodigestive tract appear normal. The osseous structures demonstrate no concerning lytic or blastic lesions. Presumed postoperative or posttraumatic change involving right posterior upper ribs. IMPRESSION: 1. Less than 50% stenosis left internal carotid artery origin. 2. Possibly high-grade left vertebral artery origin stenosis.
== END 2019-10-18 08:32 | disposition home or self-care (01) ==
LOC: CT 08:31
PROVIDERS: ATTEND Internal Medicine Cardiovascular Disease
DX: I65.23 Occlusion and stenosis of bilateral carotid arteries (principal); N18.6 End stage renal disease; Z99.2 Dependence on renal dialysis
CPT/HCPCS: 70498

== ENCOUNTER 2022-01-15 02:03 | Emergency (ER) | payer MEDICARE, BC ==
[2022-01-15] MEDS ORDERED: Dextrose 50% Abboject 50 ML SYRINGE ONE (02:08)
== END 2022-01-15 04:33 | disposition home or self-care (01) ==
LOC: ERS 02:03
DX: E11.649 Type 2 diabetes mellitus with hypoglycemia without coma (principal); E11.40 Type 2 diabetes mellitus with diabetic neuropathy, unspecified; I10 Essential (primary) hypertension
CPT/HCPCS: 36416; 96374; J7999

== ENCOUNTER 2022-03-03 06:04 | Inpatient (IN) | payer MEDICARE, BC ==
[2022-03-03 07:16] LABS: #Eosinphils 0.2 thou/uL (0.0-0.7); #Lymphocytes 1.1 thou/uL (1.20-3.40); #Monocytes 0.8 thou/uL (0.11-0.59); #Neutrophils 7.4 thou/uL (1.40-6.50); %Basophils 0.2 % (0.0-1.0); %Lymphocytes 11.6 % (21.0-51.0); %Monocytes 8.5 % (0.0-10.0); %Neutrophils 77.8 % (42.0-75.0); Mean Corpuscular HGB CONC 33.1 g/dL (32.0-36.0); Mean Corpuscular Hemoglobin 38.2 pg (27.0-31.0); Platelet Count 234 thou/uL (130-400); RBC Distribution Width 13.9 % (11.5-14.5); Red Blood Cell (RBC) Count 3.14 mill/uL (4.20-5.40); White Blood Cell (WBC) Count 9.5 thou/uL (4.8-10.8)
[2022-03-03 07:34] LABS: ALT (SGPT) 35 U/L (8-55); AST (SGOT) 28 U/L (5-34); Albumin 3.8 g/dL (3.4-4.8); Alkaline Phosphatase 84 U/L (40-110); Anion Gap 17 mmol/L (10-20); BUN (Urea Nitrogen) 34 mg/dL (9.8-20.1); Calc. Creatinine Clearance 0 mL/min (70-130); Calcium 11.6 mg/dL (7.8-10.44); Carbon Dioxide 30 mmol/L (23-31); Chloride 96 mmol/L (98-107); Estimated GFR 6; Globulin 3.1 g/dL (2.4-3.5); Glucose 403 mg/dL (80-115); Magnesium 2.7 mg/dL (1.6-2.6); Potassium 6.5 mmol/L (3.5-5.1); Protein, Total 6.9 g/dL (5.8-8.1); Sodium 136 mmol/L (136-145)
[2022-03-03 07:42] LABS: MDiff Complete? YES; Macrocytosis MODERATE=16-30 cells (100X) (0-5/hpf); Platelet Morphology Comment Appears Adequate; Polychromasia SLIGHT = 2-3 cells (100X) (0-2/hpf); Stomatocytes SLIGHT = 2-5 cells (100X) (0-1/hpf)
[2022-03-03 07:45] LABS: SARS-CoV-2 NAA Rapid Test DETECTED (NotDetected)
[2022-03-03 10:20] VITALS: BMI 32.1
[2022-03-03] MEDS ORDERED: Ondansetron ODT 4 MG TAB SL PRN (10:45)
[2022-03-03] MEDS ORDERED: Ondansetron PF 4 MG/2 ML Vial IVP PRN (10:45)
[2022-03-03] MEDS ORDERED: Insulin Regular 300 UNITS/3 ML VIAL SC PRN (11:44)
[2022-03-03 17:04] VITALS: TEMP 97.5
[2022-03-03] MEDS ORDERED: Heparin 5,000 UNITS/ML VIAL SC SCH (21:00)
== END 2022-03-03 18:06 | disposition home or self-care (01) | DRG 640 ==
LOC: ERS 06:04 → IMCU/EMU 09:33
PROVIDERS: ADMIT Specialist; ATTEND Specialist
PROC: 5A1D70Z Performance of Urinary Filtration, Intermittent, Less than 6 Hours Per Day (ICD-10-PCS; principal; 2022-03-03)
DX: E87.70 Fluid overload, unspecified (principal); J96.01 Acute respiratory failure with hypoxia; N18.6 End stage renal disease; U07.1 COVID-19; I13.2 Hypertensive heart and chronic kidney disease with heart failure and with stage 5 chronic kidney disease, or end stage renal disease; I50.42 Chronic combined systolic (congestive) and diastolic (congestive) heart failure; E87.5 Hyperkalemia; G56.00 Carpal tunnel syndrome, unspecified upper limb; E78.5 Hyperlipidemia, unspecified; G47.33 Obstructive sleep apnea (adult) (pediatric); E11.51 Type 2 diabetes mellitus with diabetic peripheral angiopathy without gangrene; M85.80 Other specified disorders of bone density and structure, unspecified site; Z79.899 Other long term (current) drug therapy; Z79.82 Long term (current) use of aspirin; Z95.1 Presence of aortocoronary bypass graft; Z99.89 Dependence on other enabling machines and devices; Z99.2 Dependence on renal dialysis
CPT/HCPCS: 36416; 70450; 71045; 80053; 83735; 83880; 85025; 90935; 93005; 94660; G0257; U0002

== ENCOUNTER 2022-03-10 08:46 | Outpatient (CLI) | payer MEDICARE, BC ==
[2022-03-10] MEDS ORDERED: Magnevist 469MG/ML 20 ML VIAL ONE (14:26)
== END 2022-03-10 08:47 | disposition home or self-care (01) ==
LOC: MRI 08:46
PROVIDERS: ATTEND Specialist
DX: I63.9 Cerebral infarction, unspecified (principal); I67.89 Other cerebrovascular disease
CPT/HCPCS: 70553; A9579

== ENCOUNTER 2022-03-30 12:04 | Outpatient (CLI) | payer MEDICARE, BC | END 2022-03-30 12:05 | disposition home or self-care (01) | LOC: LABBT 12:04 | PROVIDERS: ATTEND Internal Medicine Cardiovascular Disease | DX: Z01.818 Encounter for other preprocedural examination (principal); Z20.822 Contact with and (suspected) exposure to COVID-19 | CPT/HCPCS: 80053; 85027; 85610; 85730; 86850; 86900; 86901; 87811; 93005; 93010 ==

== ENCOUNTER 2022-03-30 13:30 | Inpatient (IN) | payer MEDICARE, BC ==
[2022-03-30 14:37] LABS: Hemoglobin 12.4 g/dL (12.0-15.5); Mean Corpuscular HGB CONC 32.2 g/dL (32.0-36.0); Mean Corpuscular Hemoglobin 35.9 pg (27.0-33.0); Mean Corpuscular Volume 111.6 fl (81.6-98.3); Mean Platelet Volume 10.9 fl (7.4-10.4); Platelet Count 273 10x3/uL (150-450); RBC Distribution Width 14.3 % (11.5-14.5); Red Blood Cell (RBC) Count 3.45 10x6/uL (3.90-5.03); White Blood Cell (WBC) Count 7.9 10x3/uL (3.5-10.5)
[2022-03-30 15:04] LABS: PTT 27.2 sec (22.0-33.0); Prothrombin Time 10.7 sec (9.5-12.1)
[2022-03-30 15:07] LABS: ALT (SGPT) 18 U/L (8-55); AST (SGOT) 17 U/L (5-34); Albumin 4.3 g/dL (3.4-4.8); Alkaline Phosphatase 97 U/L (40-110); Anion Gap 17 mmol/L (10-20); BUN (Urea Nitrogen) 48 mg/dL (9.8-20.1); Bilirubin, Total 0.8 mg/dL (0.2-1.2); Calc. Creatinine Clearance 0 mL/min (70-130); Calcium 10.6 mg/dL (7.8-10.44); Carbon Dioxide 29 mmol/L (23-31); Chloride 95 mmol/L (98-107); Estimated GFR 8; Globulin 3.1 g/dL (2.4-3.5); Glucose 540 mg/dL (80-115); Protein, Total 7.4 g/dL (5.8-8.1); Sodium 135 mmol/L (136-145)
[2022-04-04] MEDS ORDERED: CEFAZOLIN 1 GM VIAL ONE (06:58)
[2022-04-04] MEDS ORDERED: Heparin 10,000 UNITS/ 10 ML VIAL ONE (06:58)
[2022-04-04] MEDS ORDERED: Protamine Sulfate 50 MG/5 ML VIAL ONE (06:58)
[2022-04-04] MEDS ORDERED: Fentanyl 100 MCG/2 ML VIAL ONE (09:45)
[2022-04-04 10:42] LABS: Anion Gap 15 mmol/L (10-20); BUN (Urea Nitrogen) 35 mg/dL (9.8-20.1); Calc. Creatinine Clearance 14 mL/min (70-130); Calcium 7.2 mg/dL (7.8-10.44); Carbon Dioxide 21 mmol/L (23-31); Chloride 106 mmol/L (98-107); Estimated GFR 9; Glucose 209 mg/dL (80-115); Potassium 3.6 mmol/L (3.5-5.1); Sodium 138 mmol/L (136-145)
[2022-04-04] MEDS ORDERED: Ondansetron PF 4 MG/2 ML Vial ONE (11:27)
[2022-04-04] MEDS ORDERED: Lidocaine 1% MPF 2 ML VIAL ONE (11:27)
[2022-04-04] MEDS ORDERED: Rocuronium Bromide 10 MG/ML (10ML VIAL) ONE (11:27)
[2022-04-04] MEDS ORDERED: PROPOFOL 200 MG/20 ML VIAL ONE (11:27)
[2022-04-04] MEDS ORDERED: Iopamidol 370 76% 100 ML VIAL ONE (15:02)
[2022-04-04] MEDS ORDERED: Midodrine HCl 5 MG TAB PO SCH (16:15)
[2022-04-04] MEDS ORDERED: LOKELMA 10 GM PACKET PO SCH (16:15)
[2022-04-04 18:16] VITALS: BMI 36.6
[2022-04-04 19:18] LABS: HBSAB Concentration Less than 8.00 mIU/mL; Hep B Surf AB Non-Reactive (NonReactive); Hep B Surf Ag Non-Reactive S/CO (NonReactive)
[2022-04-04] MEDS ORDERED: Midodrine HCl 5 MG TAB PO PRN (20:45)
[2022-04-04] MEDS ORDERED: Latanoprost 0.005% Ophth Soln 2.5 ml Bottle EA EYE SCH (21:00)
[2022-04-04] MEDS ORDERED: Gabapentin 100 MG CAP PO SCH (21:00)
[2022-04-04] MEDS: Megestrol Acetate 40 MG TAB PO SCH (21:05)
[2022-04-04] MEDS: Apixaban 2.5 MG TAB PO SCH (22:57)
[2022-04-04] MEDS ORDERED: Dextrose 5% in Water 1,000 ML IV PRN (23:24)
[2022-04-04] MEDS ORDERED: Ondansetron PF 4 MG/2 ML Vial IVP PRN (23:24)
[2022-04-04] MEDS ORDERED: Acetaminophen 325 MG TAB PO PRN (23:24)
[2022-04-04] MEDS ORDERED: HYDROcodone/Acetaminophen 5/325 mg Tablet PO PRN (23:24)
[2022-04-04] MEDS ORDERED: Dextrose 50% Abboject 50 ML SYRINGE SLOW IVP PRN (23:24)
[2022-04-04] MEDS ORDERED: Bisacodyl 5 MG TAB PO PRN (23:24)
[2022-04-04] MEDS ORDERED: Senokot S 8.6-50 MG TAB PO PRN (23:24)
[2022-04-04] MEDS ORDERED: HumaLOG 300 UNITS/3 ML VIAL SC PRN (23:24)
[2022-04-04] MEDS ORDERED: Ondansetron ODT 4 MG TAB PO PRN (23:24)
[2022-04-05 05:23] LABS: #Lymphocytes 0.9 thou/uL (1.20-3.40); #Monocytes 0.7 thou/uL (0.11-0.59); #Neutrophils 5.4 thou/uL (1.40-6.50); %Basophils 0.4 % (0.0-1.0); %Eosinophils 0.4 % (0.0-10.0); %Lymphocytes 12.1 % (21.0-51.0); %Monocytes 10.2 % (0.0-10.0); %Neutrophils 76.9 % (42.0-75.0); Mean Corpuscular HGB CONC 31.6 g/dL (32.0-36.0); Mean Corpuscular Hemoglobin 36.8 pg (27.0-31.0); Mean Platelet Volume 9.2 fL (7.4-10.4); Platelet Count 134 thou/uL (130-400); RBC Distribution Width 13.5 % (11.5-14.5); Red Blood Cell (RBC) Count 3.26 mill/uL (4.20-5.40); White Blood Cell (WBC) Count 7.1 thou/uL (4.8-10.8)
[2022-04-05 05:42] LABS: Hemoglobin A1c 9.6 % (4.0-6.0)
[2022-04-05] MEDS: HumaLOG 300 UNITS/3 ML VIAL SC PRN ×2 (06:44→14:12)
[2022-04-05 07:42] LABS: Chloride 94 mmol/L (98-107); Potassium 4.9 mmol/L (3.5-5.1); Sodium 134 mmol/L (136-145)
[2022-04-05 07:43] LABS: Glucose 406 mg/dL (80-115)
[2022-04-05 07:45] LABS: Anion Gap 19 mmol/L (10-20); Carbon Dioxide 26 mmol/L (23-31)
[2022-04-05 07:46] LABS: Calc. Creatinine Clearance 17 mL/min (70-130); Estimated GFR 10
[2022-04-05 07:47] LABS: BUN (Urea Nitrogen) 31 mg/dL (9.8-20.1)
[2022-04-05 07:50] LABS: Calcium 9.4 mg/dL (7.8-10.44)
[2022-04-05] MEDS ORDERED: Latanoprost 0.005% Ophth Soln 2.5 ml Bottle L EYE SCH (09:00)
[2022-04-05] MEDS ORDERED: Non-Formulary Item 1 EACH (Insulin Aspart [Novolog] 100 UNIT/ML Vial) SQ SCH (09:00)
[2022-04-05 10:52] VITALS: TEMP 98.1
[2022-04-05] MEDS: Megestrol Acetate 40 MG TAB PO SCH (12:46)
[2022-04-05] MEDS: Apixaban 2.5 MG TAB PO SCH (12:46)
[2022-04-05 12:55] VITALS: BP 109/53
[2022-04-06] MEDS ORDERED: LOKELMA 10 GM PACKET PO SCH (09:00)
== END 2022-04-05 14:23 | disposition home or self-care (01) | DRG 273 ==
LOC: SURG A 04-04 06:43 → 2SW 04-04 17:42
PROVIDERS: ADMIT Internal Medicine Cardiovascular Disease; ATTEND Internal Medicine Cardiovascular Disease
PROC: 02L73DK Occlusion of Left Atrial Appendage with Intraluminal Device, Percutaneous Approach (ICD-10-PCS; principal; 2022-04-04)
PROC: B24BZZ4 Ultrasonography of Heart with Aorta, Transesophageal (ICD-10-PCS; 2022-04-04)
PROC: 5A1D70Z Performance of Urinary Filtration, Intermittent, Less than 6 Hours Per Day (ICD-10-PCS; 2022-04-04)
DX: I48.0 Paroxysmal atrial fibrillation (principal); N18.6 End stage renal disease; I69.351 Hemiplegia and hemiparesis following cerebral infarction affecting right dominant side; I13.2 Hypertensive heart and chronic kidney disease with heart failure and with stage 5 chronic kidney disease, or end stage renal disease; Z20.822 Contact with and (suspected) exposure to COVID-19; Z00.6 Encounter for examination for normal comparison and control in clinical research program; E11.22 Type 2 diabetes mellitus with diabetic chronic kidney disease; I08.1 Rheumatic disorders of both mitral and tricuspid valves; I50.9 Heart failure, unspecified; G47.33 Obstructive sleep apnea (adult) (pediatric); E11.51 Type 2 diabetes mellitus with diabetic peripheral angiopathy without gangrene; J45.909 Unspecified asthma, uncomplicated; D63.1 Anemia in chronic kidney disease; H40.9 Unspecified glaucoma; I25.10 Atherosclerotic heart disease of native coronary artery without angina pectoris; Z95.1 Presence of aortocoronary bypass graft; Z99.2 Dependence on renal dialysis; Z88.8 Allergy status to other drugs, medicaments and biological substances; Z79.4 Long term (current) use of insulin; Z79.899 Other long term (current) drug therapy; Z79.01 Long term (current) use of anticoagulants; Z87.442 Personal history of urinary calculi; Z90.49 Acquired absence of other specified parts of digestive tract; Z98.51 Tubal ligation status; Z82.49 Family history of ischemic heart disease and other diseases of the circulatory system; Z98.41 Cataract extraction status, right eye; Z98.42 Cataract extraction status, left eye; Z91.81 History of falling; Z96.41 Presence of insulin pump (external) (internal)
CPT/HCPCS: 33340; 36415; 36416; 36430; 80048; 80053; 83036; 85025; 85027; 85347; 85610; 85730; 86706; 86850; 86900; 86901; 87340; 87811; 90935; 93306; 93312; C1759; C1760; C1769; C1894; G0257; J0690; J1644; J1815; J2405; J2704; J2720; J3010; J7620; Q9967; S0179